=== PATIENT | female | born 1935 | race Caucasian/White ===

== ENCOUNTER → 2019-07-25 10:47 | Outpatient (BNVA) | payer MEDICARE, SELFPAY | PROVIDERS: PCP Nurse Practitioner Family; Visit Provider Family Medicine | DX: E78.2 Mixed hyperlipidemia (principal); M81.8 Other osteoporosis without current pathological fracture; I10 Essential (primary) hypertension; R63.0 Anorexia; E03.9 Hypothyroidism, unspecified; I70.90 Unspecified atherosclerosis | CPT/HCPCS: 80053; 80061; 84443; 85025 ==

== ENCOUNTER → 2019-08-10 10:28 | Outpatient (BNVA) | payer MEDICARE, SELFPAY | PROVIDERS: PCP Nurse Practitioner Family; Visit Provider Family Medicine | DX: E03.9 Hypothyroidism, unspecified (principal); E87.1 Hypo-osmolality and hyponatremia | CPT/HCPCS: 80048; 84439; 84443 ==

== ENCOUNTER → 2019-10-06 17:00 | Outpatient (BNVA) | payer MEDICARE, SELFPAY | PROVIDERS: PCP Nurse Practitioner Family; Visit Provider Nurse Practitioner Family | DX: R17 Unspecified jaundice (principal); R35.0 Frequency of micturition | CPT/HCPCS: 81000 ==

== ENCOUNTER → 2019-10-09 11:27 | Outpatient (BNVA) | payer MEDICARE, SELFPAY | PROVIDERS: PCP Nurse Practitioner Family; Visit Provider Nurse Practitioner Family | DX: R17 Unspecified jaundice (principal); E03.9 Hypothyroidism, unspecified; F41.9 Anxiety disorder, unspecified; R63.4 Abnormal weight loss; F32.9 Major depressive disorder, single episode, unspecified | CPT/HCPCS: 80053; 82247; 82248; 84439; 84443; 84481; 85025 ==